=== PATIENT | female | born 1965 | race Caucasian/White ===

== ENCOUNTER 2017-01-23 07:33 | Emergency (ER) | payer BC, OTHER ==
[2017-01-23 08:02] VITALS: BP 130/80
[2017-01-23] MEDS ORDERED: Tetracaine 0.5% OPTH.SOL 4 ML* 1 DROP BTL RIGHT EYE ONE (08:02)
[2017-01-23] MEDS ORDERED: Fluorescein Sodium TOPICAL* 1 MG TEST ONE (08:05)
[2017-01-23] MEDS ORDERED: Fluorescein Sodium TOPICAL* 1 MG TEST OPHTHALMIC ONE (08:06)
[2017-01-23] MEDS ORDERED: Eye Irrigation Solution 30 ML BOTTLE ONE (08:10)
--- NOTE | 2017-01-23 08:16 | UC ---
Eye Complaint HPI - HPI Summary HPI Summary: right eye irritation x 2 days , + redness , itchy , + discharge, no pain , no change in vision - History of Current Complaint Chief Complaint: UCEye Stated Complaint: RIGHT EYE COMPLAINT Time Seen by Provider: 01/23/17 07:44 Hx Obtained From: Patient Hx Last Menstrual Period: 12/25/16 ?: No Onset/Duration: Gradual Onset, Lasting Days - 2, Still Present Timing: Constant Severity Initially: Moderate Severity Currently: Moderate Location of Injury: Conjunctiva - right Character: Dull, Foreign Body Sensation Aggravating Factor(s): Blinking Alleviating Factor(s): Nothing Associated Signs And Symptoms: Positive: Drainage (Clear) - right eye, Drainage (Purulent) - right eye. Negative: Photophobia, Vision Impairment Bilateral, Vision Impairment Right, Vision Impairment Left, Fever, Swelling - Allergies/Home Medications Allergies/Adverse Reactions: Allergies Allergy/AdvReac Type Severity Reaction Status Date / Time Penicillins Allergy Severe Rash Verified 01/23/17 07:49 PMH/Surg Hx/FS Hx/Imm Hx Cardiovascular History Of: Reports: Cardiac Disorders - mitral valve prolapse - Surgical History Surgical History: Yes Surgery Procedure, Year, and Place: . Tonsillectomy. Fatty tumors removed from lower back. Breast reduction 07/2015 - Family History Known Family History: Positive: None Negative: Diabetes - Social History Alcohol Use: Occasionally Substance Use Type: None Smoking Status (MU): Never Smoked Tobacco Review of Systems Constitutional: Negative Skin: Negative Eyes: Eye Redness - right eye ENT: Negative Respiratory: Negative Cardiovascular: Negative Gastrointestinal: Negative All Other Systems Reviewed And Are Negative: Yes Physical Exam Triage Information Reviewed: Yes Appearance: Well-Appearing, No Pain Distress, Well-Nourished Vital Signs: Initial Vital Signs Temp 98 F 01/23/17 07:38 Pulse 60 01/23/17 07:38 Resp 16 01/23/17 07:38 BP 130/80 01/23/17 07:38 Pulse Ox 96 01/23/17 07:38 Vital Signs Reviewed: Yes Eyes: Positive: Conjunctiva Inflamed - right eye, Discharge - clear discharge right eye, Other: - no abrasion seen ENT: Positive: Normal ENT inspection, Hearing grossly normal, Pharynx normal Neck exam: Normal Neck: Positive: Supple, Nontender, No Lymphadenopathy Respiratory Exam: Normal Respiratory: Positive: Chest non-tender, Lungs clear, Normal breath sounds Cardiovascular: Positive: RRR, No Murmur, Pulses Normal Skin Exam: Normal Eye Complaint Course/Dx - Differential Dx/Diagnosis Provider Diagnoses: conjunctivitis right eye Discharge - Discharge Plan Condition: Stable Disposition: HOME Prescriptions: Tobramycin/Dexameth OPTH.SUSP* [Tobradex 0.3-0.1%*] 1 drop RIGHT EYE Q4H #1 btl Patient Education Materials: Conjunctivitis (ED) Referrals: Feliz Smith MD [Primary Care Provider] - 5 Days
[2017-01-23] MEDS ORDERED: Eye Irrigation Solution 30 ML BOTTLE RIGHT EYE ONE (08:52)
== END 2017-01-23 08:23 | disposition home or self-care (01) ==
LOC: UCCORT 07:33
DX: H10.31 Unspecified acute conjunctivitis, right eye (principal); Z88.0 Allergy status to penicillin; I34.1 Nonrheumatic mitral (valve) prolapse
CPT/HCPCS: 99212; A9270-GY; G0463

== ENCOUNTER 2019-03-30 07:01 | Emergency (ER) | payer BC ==
[2019-03-30 07:26] VITALS: BP 131/86
--- NOTE | 2019-03-30 07:46 | UC ---
Upper Extremity HPI - HPI Summary HPI Summary: Per automatic bandsaw tender: "had a R shoulder replacement in September, and yesterday, [place] [address] having L hand protect arm. R elbow with abrasion on it, and pt is concerned since upper arm and elbow are swollen. " -Dr Palmer, [facility] did surgery -here w/ her . it wasnt that painful last night. she woke up with swelling and is concerned. no numbing or tingling. hand is not cold. she reports no compromise in ROM in comparison to her progress of PT for shoulder as she has not had full recovery yet. -she slipped and fell. no LOC. no lightheadedness. no dizziness, no CP/SOB - History of Current Complaint Chief Complaint: UCUpperExtremity Stated Complaint: RT ARM COMPLAINT S/P FALL Time Seen by Provider: 03/30/19 07:16 Hx Last Menstrual Period: 12/25/16 Pain Intensity: 3 - Allergies/Home Medications Allergies/Adverse Reactions: Allergies Allergy/AdvReac Type Severity Reaction Status Date / Time Penicillins Allergy Rash Verified 03/30/19 07:20 PMH/Surg Hx/FS Hx/Imm Hx Previously Healthy: Yes - Surgical History Surgical History: Yes Surgery Procedure, Year, and Place: . Tonsillectomy. Fatty tumors removed from lower back. Breast reduction 07/2015. right shoulder surgery 2018 - Family History Known Family History: Positive: None Negative: Diabetes - Social History Alcohol Use: Occasionally Substance Use Type: None Smoking Status (MU): Former Smoker When Did the Patient Quit Smoking/Using Tobacco: 2008 Review of Systems All Other Systems Reviewed And Are Negative: Yes Constitutional: Positive: Negative Skin: Positive: Other - abrasion rt elbow ENT: Positive: Negative Respiratory: Positive: Negative Cardiovascular: Positive: Negative Gastrointestinal: Positive: Negative Genitourinary: Positive: Negative. Negative: Dysuria Motor: Positive: Other - see above Neurovascular: Positive: Negative. Negative: Decreased Sensation, Decreased Pulses Musculoskeletal: Positive: Other: - see above Neurological: Positive: Negative Psychological: Positive: Negative Is Patient Immunocompromised?: No Physical Exam Triage Information Reviewed: Yes Appearance: Well-Appearing, No Pain Distress, Well-Nourished - very pleasant Vital Signs: Initial Vital Signs Temp 98.2 F 03/30/19 07:21 Pulse 88 03/30/19 07:21 Resp 16 03/30/19 07:21 BP 131/86 03/30/19 07:21 Pulse Ox 98 03/30/19 07:21 Vital Signs Reviewed: Yes Respiratory Exam: Normal Respiratory: Positive: Lungs clear Cardiovascular Exam: Normal Cardiovascular: Positive: RRR Musculoskeletal: Positive: ROM Limited @ - She has some limited flexion of elbow (~ 125), unable to fully extend. some limitation w/ pronationa dn supination. + 2 radial. CR brisk. fingers FROM. sens intact. mild abrasion to skin. generalized swelling Neurological Exam: Normal Psychological Exam: Normal Skin Exam: Normal Upper Extremity Course/Dx - Course Course Of Treatment: Rt elbow xray: REPORT AND IMPRESSION: #. Impacted comminuted fracture at the distal metaphysis of the humerus with impaction greatest at the ulnar margin. Intra-articular extension likely given presence of effusion/hemarthrosis. #. Negative for dislocation. #. Soft tissue swelling greatest over the medial aspect. -I s/w Dr Rojelio Natarajan from [facility] environmental tech and reviewed report, he i sunable to view images. -recommendation is sling, no splint, ice, rest and call Monday for f/u w/ Dr Cross -may be conservative vs surgical treatment once Dr Cross reviews images. -she understands to call [facility] w/ any numbing/tingling in hand or severe swelling -CD w/ images given to pt as well as xray report -she understood me well and is very agreeable w/ plan - Differential Dx/Diagnosis Differential Diagnosis/HQI/PQRI: Contusion, Fracture (Closed), Strain, Sprain Provider Diagnosis: Humerus distal fracture Discharge - Sign-Out/Discharge Documenting (check all that apply): Patient Departure All imaging exams completed and their final reports reviewed: Yes - Discharge Plan Condition: Stable Disposition: HOME Patient Education Materials: Arm Fracture in Adults (ED) Referrals: Feliz Smith MD [Primary Care Provider] - Andrea Cross MD [Medical Doctor] - Additional Instructions: We discussed that I reveiwed your xray report with Dr Natarajan from [facility] who is covering for Dr Cross today. Recommendation is to use the splint and ice frequently. Please call [facility] directly with severe swelling or any numbing or tingling that may occur. -We have given you a CD with the images. Please bring this with you to your appt. - Billing Disposition and Condition Condition: STABLE Disposition: Home
== END 2019-03-30 09:01 | disposition home or self-care (01) ==
LOC: UCCORT 07:01
DX: S42.491A Other displaced fracture of lower end of right humerus, initial encounter for closed fracture (principal); W19.XXXA Unspecified fall, initial encounter; Y92.410 Unspecified street and highway as the place of occurrence of the external cause; Z96.611 Presence of right artificial shoulder joint; Z87.891 Personal history of nicotine dependence
CPT/HCPCS: 99212; G0463